=== PATIENT | female | born 1970 | race Two or more races ===

== ENCOUNTER 2019-02-05 09:22 | Outpatient (CLI) | payer OTHER ==
[~2019-02-05 09:22] MED LIST: ADVAIR 2501 DISK W/1; ALLEGRA ALLERG180 MG; Acetaminophen/Cod #3 Tablet PO; CABERGOLINE0.5 MG PO; COMPLEX B30 ML TP; CYMBALTA30 MG PO; CYMBALTA60 MG PO; DESYREL100 MG; DETROL2 MG PO; DOMPERIDONE1 GM MC; FOSAMAX70 MG PO; LEVAQUIN750 MG PO; Mylicon 125MG PO; NEURONTIN600 MG PO; PRILOSEC20 MG PO; RILUTEK50 MG PO; SIMVASTATIN5 MG; SYNTHROID75 MCG; VIT BALANCED B-1 TAB PO; ZANAFLEX2 M1 PO; ZANTAC300 MG PO; [UNRECOGNIZED DRUG - OTHER]
== END 2019-02-05 09:28 | disposition home or self-care (01) ==
LOC: RAD 09:22
DX: M19.90 Unspecified osteoarthritis, unspecified site (principal)

== ENCOUNTER 2019-02-05 10:33 | Outpatient (CLI) | payer OTHER | END 2019-02-05 10:37 | disposition home or self-care (01) | LOC: SONOGRAMA 10:33 | DX: M17.0 Bilateral primary osteoarthritis of knee (principal); M19.012 Primary osteoarthritis, left shoulder; M19.011 Primary osteoarthritis, right shoulder ==

== ENCOUNTER 2019-03-05 11:28 | Outpatient (CLI) | payer OTHER | END 2019-03-05 12:14 | disposition home or self-care (01) | LOC: LAB 11:28 | DX: J44.9 Chronic obstructive pulmonary disease, unspecified (principal) ==

== ENCOUNTER → 2019-03-13 | Outpatient (CLI) | payer OTHER ==
[~2019-03-13] MED LIST changes: +VASOTEC2.5 MG
== END | disposition home or self-care (01) ==
LOC: LAB 08:13
DX: J15.7 Pneumonia due to Mycoplasma pneumoniae (principal)

== ENCOUNTER 2019-03-15 09:04 | Emergency (ER) | payer OTHER ==
[~2019-03-15] VITALS: Ht 162.6 cm; Wt 73.9 kg
[~2019-03-15 09:04] MED LIST changes: -VASOTEC2.5 MG
[2019-03-15] MEDS ORDERED: VASOTEC2.5 MG (09:17)
== END 2019-03-15 10:13 | disposition home or self-care (01) ==
LOC: ER 09:04
DX: B96.0 Mycoplasma pneumoniae [M. pneumoniae] as the cause of diseases classified elsewhere (principal)

== ENCOUNTER 2019-04-06 07:10 | Emergency (ER) | payer OTHER ==
[~2019-04-06] VITALS: Ht 162.6 cm; Wt 75.7 kg
[~2019-04-06 07:10] MED LIST changes: +VASOTEC2.5 MG
[2019-04-06] MEDS ORDERED: VENTOLIN HFA18 GM (07:24)
== END 2019-04-06 09:10 | disposition home or self-care (01) ==
LOC: ER 07:10
DX: B33.8 Other specified viral diseases (principal); B96.0 Mycoplasma pneumoniae [M. pneumoniae] as the cause of diseases classified elsewhere

== ENCOUNTER 2019-06-15 16:40 | Emergency (ER) | payer OTHER ==
[~2019-06-15] VITALS: Ht 167.6 cm; Wt 75.7 kg
[~2019-06-15 16:40] MED LIST changes: +VENTOLIN HFA18 GM
== END 2019-06-15 19:48 | disposition home or self-care (01) ==
LOC: ER 16:40
DX: J06.9 Acute upper respiratory infection, unspecified (principal)

== ENCOUNTER 2019-07-08 13:59 | Outpatient (CLI) | payer OTHER | END 2019-07-08 14:03 | disposition home or self-care (01) | LOC: MAMO-SONO 13:59 | DX: N64.59 Other signs and symptoms in breast (principal); N64.89 Other specified disorders of breast; N63.10 Unspecified lump in the right breast, unspecified quadrant; N63.20 Unspecified lump in the left breast, unspecified quadrant; Z12.31 Encounter for screening mammogram for malignant neoplasm of breast; Z87.898 Personal history of other specified conditions ==

== ENCOUNTER 2019-08-14 09:34 | Emergency (ER) | payer OTHER ==
[~2019-08-14] VITALS: Ht 165.1 cm; Wt 68.0 kg
== END 2019-08-14 14:40 | disposition home or self-care (01) ==
LOC: ER 09:34
DX: S83.8X2A Sprain of other specified parts of left knee, initial encounter (principal); X50.0XXA Overexertion from strenuous movement or load, initial encounter; Y93.89 Activity, other specified; Y92.69 Other specified industrial and construction area as the place of occurrence of the external cause; Y99.8 Other external cause status

== ENCOUNTER 2019-09-01 05:30 | Day surgery (SDC) | payer OTHER | END 2019-09-01 09:50 | disposition home or self-care (01) | LOC: AMB-ENDOS 05:30 | DX: D13.1 Benign neoplasm of stomach (principal) ==

== ENCOUNTER 2019-09-02 13:13 | Emergency (ER) | payer OTHER ==
[~2019-09-02] VITALS: Ht 170.2 cm; Wt 68.0 kg
== END 2019-09-02 16:15 | disposition home or self-care (01) ==
LOC: ER 13:13
DX: R11.2 Nausea with vomiting, unspecified (principal); T41.1X5A Adverse effect of intravenous anesthetics, initial encounter; Y92.89 Other specified places as the place of occurrence of the external cause

== ENCOUNTER 2020-07-21 09:50 | Emergency (ER) | payer OTHER ==
[~2020-07-21] VITALS: Ht 167.6 cm; Wt 75.7 kg
[2020-07-21] MEDS ORDERED: DULOXETINE HCL40 MG (10:10)
[2020-07-21] MEDS ORDERED: CIPRO500 MG PO (12:52)
[2020-07-21] MEDS ORDERED: FLAGYL500MG PO (12:52)
[2020-07-21] MEDS ORDERED: PEPCID AC20 MG PO (12:52)
[2020-07-21] MEDS ORDERED: LEVSIN/SL0.125 MG SL (12:52)
== END 2020-07-21 13:28 | disposition home or self-care (01) ==
LOC: ER 09:50
DX: K82.8 Other specified diseases of gallbladder (principal); R10.11 Right upper quadrant pain

== ENCOUNTER 2020-07-23 07:38 | Outpatient (CLI) | payer OTHER ==
[~2020-07-23 07:38] MED LIST changes: +CIPRO500 MG PO; +DULOXETINE HCL40 MG; +FLAGYL500MG PO; +LEVSIN/SL0.125 MG SL; +PEPCID AC20 MG PO
== END 2020-07-23 08:01 | disposition home or self-care (01) ==
LOC: MRI 07:38
PROVIDERS: ATTEND Internal Medicine Cardiovascular Disease
DX: K80.20 Calculus of gallbladder without cholecystitis without obstruction (principal); K85.90 Acute pancreatitis without necrosis or infection, unspecified
CPT/HCPCS: 74181

== ENCOUNTER → 2020-08-09 08:25 | Outpatient (CLI) | payer OTHER | END | disposition home or self-care (01) | LOC: LAB 08:25 | PROVIDERS: ATTEND Radiology Diagnostic Radiology | DX: C22.8 Malignant neoplasm of liver, primary, unspecified as to type (principal) ==

== ENCOUNTER 2020-08-11 07:10 | Outpatient (CLI) | payer OTHER | END 2020-08-11 07:13 | disposition home or self-care (01) | LOC: MRI 07:10 | PROVIDERS: ATTEND Internal Medicine Cardiovascular Disease | DX: D18.09 Hemangioma of other sites (principal); C22.8 Malignant neoplasm of liver, primary, unspecified as to type | CPT/HCPCS: 74183; A9575 ==

== ENCOUNTER 2021-04-18 07:26 | Outpatient (CLI) | payer OTHER | END 2021-04-18 07:27 | disposition home or self-care (01) | LOC: NUCLEAR 07:26 | PROVIDERS: ATTEND Psychiatry & Neurology Clinical Neurophysiology | DX: R55 Syncope and collapse (principal) ==

== ENCOUNTER 2021-05-05 11:37 | Emergency (ER) | payer OTHER ==
[~2021-05-05] VITALS: Ht 167.6 cm; Wt 75.7 kg
[2021-05-05] MEDS ORDERED: [UNRECOGNIZED DRUG - OTHER] (13:18)
[2021-05-05] MEDS ORDERED: INTEGRA CAPSUL1 EACH (13:19)
== END 2021-05-05 19:31 | disposition home or self-care (01) ==
LOC: ER 11:37
DX: R42 Dizziness and giddiness (principal); R20.0 Anesthesia of skin; G12.21 Amyotrophic lateral sclerosis; Z03.818 Encounter for observation for suspected exposure to other biological agents ruled out
CPT/HCPCS: 70544; 70551

== ENCOUNTER 2022-07-04 07:45 | Inpatient (IN) | payer OTHER ==
[~2022-07-04] VITALS: Ht 167.6 cm; Wt 77.1 kg
[~2022-07-04 07:45] MED LIST changes: +INTEGRA CAPSUL1 EACH; +[UNRECOGNIZED DRUG - OTHER]
[2022-07-04] MEDS ORDERED: VITAMIN 12 (09:44)
[2022-07-04] MEDS ORDERED: SYNTHROID88 MCG PO (09:45)
[2022-07-04] MEDS ORDERED: CYMBALTA60 MG PO (09:50)
[2022-07-06] MEDS ORDERED: FAMOTIDINE20 MG (08:58)
[2022-07-06] MEDS ORDERED: MEMANTINE HCL10 MG (08:58)
[2022-07-06] MEDS ORDERED: ATORVASTATIN CA20 MG (08:58)
[2022-07-06] MEDS ORDERED: SERTRALINE HCL25 MG (08:58)
[2022-07-06] MEDS ORDERED: WIXELA 100-501 EACH (08:58)
[2022-07-06] MEDS ORDERED: CYANOCOBAL1000 MCG/1 (08:58)
[2022-07-06] MEDS ORDERED: MONTELUKAST SOD10 MG (08:58)
== END 2022-07-07 09:47 | disposition home or self-care (01) | DRG 416 ==
LOC: O/R 07-06 05:44 → SURG 07-06 07:45
PROVIDERS: ADMIT Specialist; ATTEND Specialist
PROC: 0FT40ZZ Resection of Gallbladder, Open Approach (ICD-10-PCS; principal; 2022-07-06 09:30)
DX: K80.10 Calculus of gallbladder with chronic cholecystitis without obstruction (principal); Z20.822 Contact with and (suspected) exposure to COVID-19

== ENCOUNTER 2023-09-11 17:36 | Inpatient (IN) | payer OTHER ==
[~2023-09-11] VITALS: Ht 167.6 cm; Wt 73.9 kg
[~2023-09-11 17:36] MED LIST changes: +ATORVASTATIN CA20 MG; +CYANOCOBAL1000 MCG/1; +FAMOTIDINE20 MG; +MEMANTINE HCL10 MG; +MONTELUKAST SOD10 MG; +SERTRALINE HCL25 MG; +SYNTHROID88 MCG PO; +VITAMIN 12; +WIXELA 100-501 EACH
[2023-09-11 19:48] LABS: HEMATOCRIT 41.7 % (36.0-45.00); MEAN CELL VOLUME 88.7 fL (80.00-100.00); MEAN CORPUSCULAR HEMOGLOBIN 29.8 pg (27.00-32.0); MEAN CORPUSCULAR HGB CONC 33.6 g/dl (32.0-36.0); PLATELET COUNT 286 K/uL (150-450); RED BLOOD COUNT 4.71 M/uL (4.00-6.00); RED CELL DISTRIBUTION WIDTH 13.3 % (11.5-14.5)
[2023-09-11 19:49] LABS: PH,URINE 5.5 (5.0-8.0); URINE APPEARANCE Clear; URINE BILIRRUBIN Negative (NEGATIVE); URINE BLOOD Negative; URINE COLOR Yellow; URINE GLUCOSE Negative (NEGATIVE); URINE LEUKOCYTE Moderate; URINE NITRATE Negative; URINE PROTEIN Negative (NEGATIVE); URINE UROBILINOGEN 0.2 E.U./dl
[2023-09-11 19:50] LABS: URINE EPITHELIAL CELLS 6.7 uL (0.0-38.8); URINE WBC 53.4 uL (0.0-23.2)
[2023-09-11 19:54] LABS: URINE RBC 0.4 uL (0.0-20.8)
[2023-09-11 20:13] LABS: ALBUMIN 4.2 gm/dL (3.4-5.0); BILIRUBIN TOTAL 0.67 mg/dL (0.3-1.2); CALCIUM 9.4 mg/dL (8.5-10.1); CREATININE SERUM 0.81 mg/dL (0.55-1.02); GFR 73.96; GLOBULINA 3.9 G/DL (2.4-3.5); POTASSIUM 3.73 mEq/L (3.5-5.1); TOTAL PROTEIN 8.1 gm/dL (6.4-8.2)
[2023-09-12 21:07] LABS: HEMATOCRIT 39.2 % (36.0-45.00); HEMOGLOBIN 13.1 g/dL (12.0-15.00); MEAN CELL VOLUME 88.7 fL (80.00-100.00); MEAN CORPUSCULAR HEMOGLOBIN 29.6 pg (27.00-32.0); MEAN CORPUSCULAR HGB CONC 33.4 g/dl (32.0-36.0); PLATELET COUNT 225 K/uL (150-450); RED BLOOD COUNT 4.42 M/uL (4.00-6.00)
[2023-09-12 21:15] LABS: ERYTHROCYTE SEDIMENTATION RATE 19 mm/hr
[2023-09-12 21:25] LABS: INR 1.02; PARTIAL THROMBOPLASTIN TIME 25.9 SECONDS (22.0-34.0); PROTHROMBIN TIME 10.7 SECONDS (9.0-11.5)
[2023-09-12 21:29] LABS: ALBUMIN 3.5 gm/dL (3.4-5.0); BILIRUBIN TOTAL 0.91 mg/dL (0.3-1.2); CALCIUM 8.8 mg/dL (8.5-10.1); CREATININE SERUM 0.7 mg/dL (0.55-1.02); GFR 87.53; GLOBULINA 3.3 G/DL (2.4-3.5); POTASSIUM 3.44 mEq/L (3.5-5.1); TOTAL PROTEIN 6.8 gm/dL (6.4-8.2)
== END 2023-09-16 14:48 | disposition home or self-care (01) | DRG 390 ==
LOC: ER 17:36 → SURG 09-12 19:12
PROVIDERS: General Practice; Nurse Practitioner Family; ADMIT Colon & Rectal Surgery; ATTEND Colon & Rectal Surgery
PROC: BW21YZZ Computerized Tomography (CT Scan) of Abdomen and Pelvis using Other Contrast (ICD-10-PCS; principal; 2023-09-11)
DX: K56.609 Unspecified intestinal obstruction, unspecified as to partial versus complete obstruction (principal); I10 Essential (primary) hypertension; E03.9 Hypothyroidism, unspecified

== ENCOUNTER 2023-10-14 17:35 | Emergency (ER) | payer OTHER ==
[~2023-10-14] VITALS: Ht 167.6 cm; Wt 73.5 kg
[2023-10-14 18:36] LABS: HEMATOCRIT 38.2 % (36.0-45.00); HEMOGLOBIN 13.1 g/dL (12.0-15.00); MEAN CELL VOLUME 88.5 fL (80.00-100.00); MEAN CORPUSCULAR HEMOGLOBIN 30.4 pg (27.00-32.0); MEAN CORPUSCULAR HGB CONC 34.3 g/dl (32.0-36.0); PLATELET COUNT 221 K/uL (150-450); RED BLOOD COUNT 4.31 M/uL (4.00-6.00); RED CELL DISTRIBUTION WIDTH 12.9 % (11.5-14.5)
[2023-10-14 19:01] LABS: ALBUMIN 3.9 gm/dL (3.4-5.0); BILIRUBIN TOTAL 0.65 mg/dL (0.3-1.2); CREATININE SERUM 0.78 mg/dL (0.55-1.02); GFR 77.26; GLOBULINA 3.8 G/DL (2.4-3.5); POTASSIUM 3.75 mEq/L (3.5-5.1); TOTAL PROTEIN 7.7 gm/dL (6.4-8.2)
== END 2023-10-14 19:56 | disposition home or self-care (01) ==
LOC: ER 17:36
PROVIDERS: General Practice
DX: U07.1 COVID-19 (principal); J06.9 Acute upper respiratory infection, unspecified; J00 Acute nasopharyngitis [common cold]
CPT/HCPCS: 36415; 96365; 99282; J3490

== ENCOUNTER 2024-11-18 08:25 | Emergency (ER) | payer OTHER ==
[~2024-11-18] VITALS: Ht 167.6 cm; Wt 72.6 kg
[2024-11-18] MEDS ORDERED: ALLEGRA ALLERGY60 MG (08:44)
[2024-11-18 10:33] LABS: HEMATOCRIT 43.9 % (36.0-45.00); HEMOGLOBIN 14.9 g/dL (12.0-15.00); MEAN CELL VOLUME 89.4 fL (80.00-100.00); MEAN CORPUSCULAR HEMOGLOBIN 30.3 pg (27.00-32.0); MEAN CORPUSCULAR HGB CONC 33.9 g/dl (32.0-36.0); PLATELET COUNT 236 K/uL (150-450); RED BLOOD COUNT 4.91 M/uL (4.00-6.00); RED CELL DISTRIBUTION WIDTH 13.6 % (11.5-14.5)
[2024-11-18 10:34] LABS: PH,URINE 5.5 (5.0-8.0); URINE APPEARANCE Cloudy; URINE BILIRRUBIN Negative (NEGATIVE); URINE BLOOD Negative; URINE COLOR Yellow; URINE GLUCOSE Negative (NEGATIVE); URINE KETONE Negative (NEGATIVE); URINE LEUKOCYTE Moderate; URINE NITRATE Negative; URINE PROTEIN Negative (NEGATIVE); URINE UROBILINOGEN 0.2 E.U./dl
[2024-11-18 10:40] LABS: URINE BACTERIA 3381.8 uL (0.0-1933); URINE EPITHELIAL CELLS 64.9 uL (0.0-38.8); URINE RBC 3.9 uL (0.0-20.8); URINE WBC 386.1 uL (0.0-23.2)
[2024-11-18 11:11] LABS: URINE CAST 0.58 uL (0.0-1.40)
[2024-11-18 11:35] LABS: ALBUMIN 4.6 gm/dL (3.4-5.0); BILIRUBIN TOTAL 0.71 mg/dL (0.3-1.2); BILIRUBIN,CONJUGATED 0.17 mg/dL (0.0-0.2); BILIRUBIN,UNCONJUGATED 0.54 mg/dL (0.0-0.6); CALCIUM 10.2 mg/dL (8.5-10.1); CREATININE SERUM 0.84 mg/dL (0.55-1.02); GFR 70.65; GLOBULINA 3.6 G/DL (2.4-3.5); POTASSIUM 3.68 mEq/L (3.5-5.1); TOTAL PROTEIN 8.2 gm/dL (6.4-8.2)
[2024-11-18] MEDS ORDERED: DIPHENHYDRAMINE HCL 50 MG/ML VIAL 1ML IV ONE (13:00)
[2024-11-18] MEDS ORDERED: METHYLPREDNISOLONE SOD SUCC 125 MG VIAL IV ONE (13:00)
[2024-11-18] MEDS ORDERED: METHYLPREDNISOLONE SOD SUCC 125 MG VIAL ONE (13:17)
[2024-11-18] MEDS ORDERED: DIPHENHYDRAMINE HCL 50 MG/ML VIAL 1ML ONE (13:17)
== END 2024-11-18 16:55 | disposition home or self-care (01) ==
LOC: ER 08:27
PROVIDERS: Emergency Medicine
DX: R10.9 Unspecified abdominal pain (principal); Z20.822 Contact with and (suspected) exposure to COVID-19; I10 Essential (primary) hypertension; E03.8 Other specified hypothyroidism
CPT/HCPCS: 36415; 74177; 96365; 99284; J1200; J3490; Q9965